=== PATIENT | male | born 1980 | race Caucasian/White ===

== ENCOUNTER 2016-12-16 19:54 | Emergency (ER) | payer OTHER ==
--- NOTE | 2016-12-16 21:41 | ED CLINICAL REPORT ---
Clinical Report - Physicians/Mid Levels [facility] [address] [place] [address] 12/16/2016 19:56 Patient: JERMAN HUSAIN Time Seen: 20:59. Arrived- By private vehicle. Historian- patient. CPT: ER phys charges level 3 plus (#870222). 7.6-12.5 simple-scalp, neck, ax (#[id number]). HISTORY OF PRESENT ILLNESS Chief Complaint: Injury to the right hand. The injury happened just prior to arrival. Occurred at home. The patient sustained a laceration from a sharp edge. Patient is experiencing mild pain. No other injury. REVIEW OF SYSTEMS The patient sustained a laceration. No swelling, tingling, numbness, weakness or foreign body. All systems otherwise negative, except as recorded above. PAST HISTORY See nurses notes. The patient's dominant hand is the right. Tetanus immunization status is up-to-date. Problems: no known problems. Medications: None. Allergies: Penicillin. Sulfa Antibiotics. SOCIAL HISTORY Heavy tobacco smoker (cigarette)- less than 1 pack per day. Occasional alcohol use. No drug use. ADDITIONAL NOTES The nursing notes have been reviewed. PHYSICAL EXAM Vital Signs: 12/16/2016 20:10 BP: 157/104. HR: 114. RR: 14. O2 saturation: 95%. Temp: 98.8 F. Pain level now: 0/10. Appearance: Alert. Patient in mild distress. Skin: Skin warm and dry. Extremities: Hypothenar eminence, right hand: mild tenderness and subcutaneous laceration. SEE LACERATION PROCEDURE NOTE. Neurovascular intact distally. No swelling or deformity. No limited movement of the little finger. No wrist injury. Extremities otherwise negative. Neuro, Vascular and Tendons: Vascular status intact. Sensation intact. Motor intact. Neuro: Oriented X 3. No motor deficit. No sensory deficit. PROGRESS AND PROCEDURES Laceration Repair: Location: right hand. Length: 8 cm. Complexity: simple (local anesthesia used and sutured). Wound depth/shape- subcutaneous and linear. Wound is clean. Distal neuro/vascular/tendon status normal. Tendon examined. No tendon deficit or laceration. Local anesthesia provided using 2% lidocaine with bicarb. Prepped with Hibiclens. Wound cleansed and irrigated extensively with normal saline. Closure of skin: interrupted 4-0 (11 sutures). Post-procedure: he is stable and there are no complications. Bleeding is controlled and neuro-vascular status is intact distal to the wound. Dressing applied. Tetanus immunization given. Estimated blood loss: 2 mL. Course of Care: Tdap. Patient/family counseled. Disposition: Discharged. Condition: stable and improved. CLINICAL IMPRESSION Single deep laceration to the right hand.No foreign body present. Uncontrolled essential hypertension. INSTRUCTIONS Protect wound and keep wound area clean. Change dressing twice daily. Keep wounds dry. You may wash wounds briefly, then dry. Apply neosporin twice daily. Sutures should be removed in seven days. Limit use of your right hand until better. Warnings: TETANUS: You were given a tetanus shot during your visit. Make a note for future reference. GENERAL WARNINGS: Return or contact your physician immediately if your condition worsens or changes unexpectedly, if not improving as expected, or if other problems arise. OTC Medications: Acetaminophen (available over the counter): take according to label instructions. Follow-up: Follow up with your doctor in one week. Call for an appointment. Reason for referral: for suture removal as needed. Understanding of the discharge instructions verbalized by patient. (Electronically signed by Brice Eaton MD 12/19/2016 23:12)
--- NOTE | 2016-12-16 21:41 | ED ORDER SUMMARY ---
..... Patient: JERMAN HUSAIN OrderSheet [facility] VisitID: [id number] [address] [place] [address] 36y, M Registration Date/Time: 12/16/2016 ORDER SHEET Weight: 77.1 kg (stated) Allergies: Sulfa Antibiotics, Penicillin GENERAL ORDERS: MEDICATION ORDERS: Aekfmkp-Mcbvht-Wgmko Pertussis IM 0.5 mL (NOW, per protocol) (20:21 12/16/2016 RMarsden R.N. per protocol) (Ack 20:22 RMarsden R.N.) (Cancelled: Other20:23 RMarsden R.N.) Tdap IM 0.5 mL (NOW, per protocol) (20:23 12/16/2016 RMarsden R.N. per protocol) (Ack 20:24 RMarsden R.N.) (20:30 RMarsden R.N.) IV FLUIDS: ORDER SHEET NOTES: [Electronically signed by Mauri Looney R.N. (23:11 12/16/2016)] [Electronically signed by Brice Eaton MD (23:12 12/19/2016)] [Electronically locked/signed by Mauri Looney R.N. (23:11 12/16/2016)]
--- NOTE | 2016-12-16 21:41 | ED NURSING NOTES ---
Clinical Report - Nurses [facility] [place] [address] 12/16/2016 19:56 Patient: JERMAN HUSAIN TRIAGE Triage time 20:08. Acuity: LEVEL 4. Chief Complaint: INJURY TO RIGHT HAND. 20:16 12/16/16. Alert. No acute distress. SYED COMA SCORE: Syed Coma Scale: 15- eyes open spontaneously (4); best verbal response- oriented x 4 (5); best motor response- obeys commands (6). --20:16 Chacha Fernandez R.N. 20:10 12/16/16. BP: 157/104 (regular adult cuff) taken on the left arm, while sitting. HR: 114. RR: 14. O2 saturation: 95%. Temp: 98.8 F. Pain level now: 0/10. --20:16 Chacha Fernandez R.N. Weight: 77.1 kg stated. Height/Length: 71 inches Per Patient. BMI: 23.7. --20:12 Chacha Fernandez R.N. Medications None. --20:12 Chacha Fernandez R.N. Allergies Sulfa Antibiotics. --20:12 Chacha Fernandez R.N. Penicillin. --20:12 Chacha Fernandez R.N. History Arrived by private vehicle. Historian: patient. Primary physician (Dr Boswell). This occurred just prior to arrival. He sustained a laceration from a sharp edge (can of chicken soup). ( Patient states he was putting a gallon of milk in the garbage can and sliced his hand on the can of chicken soup.). Treatment NURSE OUTREACH CASE MANAGER: None. PAST MEDICAL HX: Tetanus status: unknown. Immunizations: up-to-date. SOCIAL HX: Light tobacco smoker. Occasional alcohol use. No drug use. FALL RISK ASSESSMENT: Fall risk assessment completed. No fall risk identified. NUTRITIONAL RISK ASSESSMENT: The nutritional risk assessment revealed no deficiencies. FUNCTIONAL ASSESSMENT: Functional assessment: no impairments noted. LEARNING NEEDS ASSESSMENT: The learning needs assessment revealed no barriers. SKIN INTEGRITY ASSESSMENT: Skin integrity risk assessment completed. No skin integrity risk identified. --20:16 Chacha Fernandez R.N. PROBLEMS: no known problems. ADDITIONAL SURGERIES: Skin grafting. --20:12 Chacha Fernandez R.N. Interventions ID band on patient. To treatment room. --20:16 Chacha Fernandez R.N. PHYSICAL ASSESSMENT 20:18 12/16/16. Ambulatory to room. GENERAL / NEURO / PSYCH: Oriented X 4. Alert. Appears in no acute distress. EXTREMITIES: Capillary refill is less than 2 seconds in the extremities. Extremity pulses are within normal limits. Extremities exhibit normal ROM. Dorsal right hand: subcutaneous 5.0 cm laceration with controlled bleeding. SKIN: Skin intact. Skin is warm and dry. --20:19 Chacha Fernandez R.N. NURSING PROGRESS NOTES 20:19 12/16/16. Call light placed in reach. Side rails up. Bed placed in lowest position. Brakes of bed on. Patient ready for evaluation- chart flagged and notification provided. --20:19 Chacha Fernandez R.N. 20:30 12/16/2016 TDAP IM 0.5 mL given. (Lot#: [id number], expiration date: 05/05/2018, [place]: sanofi pasteur). Given in the right deltoid. Allergies verified and confirmed 5 rights. Vaccine information statement provided to the patient. --20:30 Chacha Fernandez R.N. 21:37 12/16/2016 TDAP IM Response: no adverse reaction. --21:37 Mauri Looney R.N. 21:45. Applied clean dressing consisting of 4x4 gauze, following the application of antibiotic ointment (bacitracin). Secured with tube gauze. --23:10 Mauri Looney R.N. DISPOSITION / DISCHARGE Departure time: 21:52. --21:52 Mauri Looney R.N. 21:52. Condition at departure: stable. The goals identified in the patient's plan of care were met. ( Dr. Eaton aware of pt d/c BP. Gave him instructions for BP management and emphasized need to f/u with PCP regarding BP. Pt verbalizes importance of this f/u.). No learning barriers present. Discharge instructions provided and reviewed with the patient. Patient verbalized understanding. Written instructions provided in Amharic. ( Jerman verbalizes understanding of all d/c instructions including wound care and need to f/u with PCP for wound recheck. He has no questions and voices no concerns at this time.). The patient was discharged by the physician. He was discharged home and accompanied by hide and skin colerer. He left the Emergency Department ambulatory and via private vehicle. Qual Field Manager driving. SYED COMA SCORE: [place] Coma Scale: 15- eyes open spontaneously (4); best verbal response- oriented x 4 (5); best motor response- obeys commands (6). --23:10 Mauri Looney R.N. 23:08 12/16/16. BP: 156/102 (regular adult cuff) taken on the right arm, via an automated monitor, while sitting. HR: 99 (normal rate). RR: 16 (regular, unlabored and normal). O2 saturation: 97% on room air. Temp: 98.5 F (oral). Pain level now: 0/10. --23:10 Mauri Looney R.N. Locked/Released at 12/16/2016 23:11 by Mauri Looney R.N.
--- NOTE | 2016-12-16 21:41 | ED ORDER SUMMARY ---
..... Patient: JERMAN HUSAIN OrderSheet [facility] VisitID: [id number] [address] [place] [address] 36y, M Registration Date/Time: 12/16/2016 ORDER SHEET Weight: 77.1 kg (stated) Allergies: Sulfa Antibiotics, Penicillin GENERAL ORDERS: MEDICATION ORDERS: Eliqpvk-Flcauq-Lbsnj Pertussis IM 0.5 mL (NOW, per protocol) (20:21 12/16/2016 RMarsden R.N. per protocol) (Ack 20:22 RMarsden R.N.) (Cancelled: Other20:23 RMarsden R.N.) Tdap IM 0.5 mL (NOW, per protocol) (20:23 12/16/2016 RMarsden R.N. per protocol) (Ack 20:24 RMarsden R.N.) (20:30 RMarsden R.N.) IV FLUIDS: ORDER SHEET NOTES: [Electronically signed by Mauri Looney R.N. (23:11 12/16/2016)] [Electronically signed by Brice Eaton MD (23:12 12/19/2016)] [Electronically locked/signed by Mauri Looney R.N. (23:11 12/16/2016)]
--- NOTE | 2016-12-16 21:41 | ED NURSING NOTES ---
Clinical Report - Nurses [facility] [place] [address] 12/16/2016 19:56 Patient: JERMAN HUSAIN TRIAGE Triage time 20:08. Acuity: LEVEL 4. Chief Complaint: INJURY TO RIGHT HAND. 20:16 12/16/16. Alert. No acute distress. SYED COMA SCORE: Syed Coma Scale: 15- eyes open spontaneously (4); best verbal response- oriented x 4 (5); best motor response- obeys commands (6). --20:16 Chacha Fernandez R.N. 20:10 12/16/16. BP: 157/104 (regular adult cuff) taken on the left arm, while sitting. HR: 114. RR: 14. O2 saturation: 95%. Temp: 98.8 F. Pain level now: 0/10. --20:16 Chacha Fernandez R.N. Weight: 77.1 kg stated. Height/Length: 71 inches Per Patient. BMI: 23.7. --20:12 Chacha Fernandez R.N. Medications None. --20:12 Chacha Fernandez R.N. Allergies Sulfa Antibiotics. --20:12 Chacha Fernandez R.N. Penicillin. --20:12 Chacha Fernandez R.N. History Arrived by private vehicle. Historian: patient. Primary physician (Dr Boswell). This occurred just prior to arrival. He sustained a laceration from a sharp edge (can of chicken soup). ( Patient states he was putting a gallon of milk in the garbage can and sliced his hand on the can of chicken soup.). Treatment DRY PAN CHARGER: None. PAST MEDICAL HX: Tetanus status: unknown. Immunizations: up-to-date. SOCIAL HX: Light tobacco smoker. Occasional alcohol use. No drug use. FALL RISK ASSESSMENT: Fall risk assessment completed. No fall risk identified. NUTRITIONAL RISK ASSESSMENT: The nutritional risk assessment revealed no deficiencies. FUNCTIONAL ASSESSMENT: Functional assessment: no impairments noted. LEARNING NEEDS ASSESSMENT: The learning needs assessment revealed no barriers. SKIN INTEGRITY ASSESSMENT: Skin integrity risk assessment completed. No skin integrity risk identified. --20:16 Chacha Fernandez R.N. PROBLEMS: no known problems. ADDITIONAL SURGERIES: Skin grafting. --20:12 Chacha Fernandez R.N. Interventions ID band on patient. To treatment room. --20:16 Chacha Fernandez R.N. PHYSICAL ASSESSMENT 20:18 12/16/16. Ambulatory to room. GENERAL / NEURO / PSYCH: Oriented X 4. Alert. Appears in no acute distress. EXTREMITIES: Capillary refill is less than 2 seconds in the extremities. Extremity pulses are within normal limits. Extremities exhibit normal ROM. Dorsal right hand: subcutaneous 5.0 cm laceration with controlled bleeding. SKIN: Skin intact. Skin is warm and dry. --20:19 Chacha Fernandez R.N. NURSING PROGRESS NOTES 20:19 12/16/16. Call light placed in reach. Side rails up. Bed placed in lowest position. Brakes of bed on. Patient ready for evaluation- chart flagged and notification provided. --20:19 Chacha Fernandez R.N. 20:30 12/16/2016 TDAP IM 0.5 mL given. (Lot#: [id number], expiration date: 05/05/2018, Concentrator Operator: sanofi pasteur). Given in the right deltoid. Allergies verified and confirmed 5 rights. Vaccine information statement provided to the patient. --20:30 Chacha Fernandez R.N. 21:37 12/16/2016 TDAP IM Response: no adverse reaction. --21:37 Mauri Looney R.N. 21:45. Applied clean dressing consisting of 4x4 gauze, following the application of antibiotic ointment (bacitracin). Secured with tube gauze. --23:10 Mauri Looney R.N. DISPOSITION / DISCHARGE Departure time: 21:52. --21:52 Mauri Looney R.N. 21:52. Condition at departure: stable. The goals identified in the patient's plan of care were met. ( Dr. Eaton aware of pt d/c BP. Gave him instructions for BP management and emphasized need to f/u with PCP regarding BP. Pt verbalizes importance of this f/u.). No learning barriers present. Discharge instructions provided and reviewed with the patient. Patient verbalized understanding. Written instructions provided in Slovak. ( Jerman verbalizes understanding of all d/c instructions including wound care and need to f/u with PCP for wound recheck. He has no questions and voices no concerns at this time.). The patient was discharged by the physician. He was discharged home and accompanied by drug worker. He left the Emergency Department ambulatory and via private vehicle. Secondary Market Manager driving. SYED COMA SCORE: [place] Coma Scale: 15- eyes open spontaneously (4); best verbal response- oriented x 4 (5); best motor response- obeys commands (6). --23:10 Mauri Looney R.N. 23:08 12/16/16. BP: 156/102 (regular adult cuff) taken on the right arm, via an automated monitor, while sitting. HR: 99 (normal rate). RR: 16 (regular, unlabored and normal). O2 saturation: 97% on room air. Temp: 98.5 F (oral). Pain level now: 0/10. --23:10 Mauri Looney R.N. Locked/Released at 12/16/2016 23:11 by Mauri Looney R.N.
--- NOTE | 2016-12-16 21:41 | ED CLINICAL REPORT ---
Clinical Report - Physicians/Mid Levels [facility] [address] [place] [address] 12/16/2016 19:56 Patient: JERMAN HUSAIN Time Seen: 20:59. Arrived- By private vehicle. Historian- patient. CPT: ER phys charges level 3 plus (#[id number]). 7.6-12.5 simple-scalp, neck, ax (#[id number]). HISTORY OF PRESENT ILLNESS Chief Complaint: Injury to the right hand. The injury happened just prior to arrival. Occurred at home. The patient sustained a laceration from a sharp edge. Patient is experiencing mild pain. No other injury. REVIEW OF SYSTEMS The patient sustained a laceration. No swelling, tingling, numbness, weakness or foreign body. All systems otherwise negative, except as recorded above. PAST HISTORY See nurses notes. The patient's dominant hand is the right. Tetanus immunization status is up-to-date. Problems: no known problems. Medications: None. Allergies: Penicillin. Sulfa Antibiotics. SOCIAL HISTORY Heavy tobacco smoker (cigarette)- less than 1 pack per day. Occasional alcohol use. No drug use. ADDITIONAL NOTES The nursing notes have been reviewed. PHYSICAL EXAM Vital Signs: 12/16/2016 20:10 BP: 157/104. HR: 114. RR: 14. O2 saturation: 95%. Temp: 98.8 F. Pain level now: 0/10. Appearance: Alert. Patient in mild distress. Skin: Skin warm and dry. Extremities: Hypothenar eminence, right hand: mild tenderness and subcutaneous laceration. SEE LACERATION PROCEDURE NOTE. Neurovascular intact distally. No swelling or deformity. No limited movement of the little finger. No wrist injury. Extremities otherwise negative. Neuro, Vascular and Tendons: Vascular status intact. Sensation intact. Motor intact. Neuro: Oriented X 3. No motor deficit. No sensory deficit. PROGRESS AND PROCEDURES Laceration Repair: Location: right hand. Length: 8 cm. Complexity: simple (local anesthesia used and sutured). Wound depth/shape- subcutaneous and linear. Wound is clean. Distal neuro/vascular/tendon status normal. Tendon examined. No tendon deficit or laceration. Local anesthesia provided using 2% lidocaine with bicarb. Prepped with Hibiclens. Wound cleansed and irrigated extensively with normal saline. Closure of skin: interrupted 4-0 (11 sutures). Post-procedure: he is stable and there are no complications. Bleeding is controlled and neuro-vascular status is intact distal to the wound. Dressing applied. Tetanus immunization given. Estimated blood loss: 2 mL. Course of Care: Tdap. Patient/family counseled. Disposition: Discharged. Condition: stable and improved. CLINICAL IMPRESSION Single deep laceration to the right hand.No foreign body present. Uncontrolled essential hypertension. INSTRUCTIONS Protect wound and keep wound area clean. Change dressing twice daily. Keep wounds dry. You may wash wounds briefly, then dry. Apply neosporin twice daily. Sutures should be removed in seven days. Limit use of your right hand until better. Warnings: TETANUS: You were given a tetanus shot during your visit. Make a note for future reference. GENERAL WARNINGS: Return or contact your physician immediately if your condition worsens or changes unexpectedly, if not improving as expected, or if other problems arise. OTC Medications: Acetaminophen (available over the counter): take according to label instructions. Follow-up: Follow up with your doctor in one week. Call for an appointment. Reason for referral: for suture removal as needed. Understanding of the discharge instructions verbalized by patient. (Electronically signed by Brice Eaton MD 12/19/2016 23:12)
--- NOTE | 2016-12-19 23:13 | ED DISCHARGE INSTRUCTIONS ---
Patient: JERMAN HUSAIN General Instructions [facility] VisitID: [id number] [place] [address] 36y, M Registration Date/Time: 12/16/2016 Single deep laceration to the right hand.No foreign body present. Uncontrolled essential hypertension. INSTRUCTIONS Protect wound and keep wound area clean. Change dressing twice daily. Keep wounds dry. You may wash wounds briefly, then dry. Apply neosporin twice daily. Sutures should be removed in seven days. Limit use of your right hand until better. Warnings: TETANUS: You were given a tetanus shot during your visit. Make a note for future reference. GENERAL WARNINGS: Return or contact your physician immediately if your condition worsens or changes unexpectedly, if not improving as expected, or if other problems arise. OTC Medications: Acetaminophen (available over the counter): take according to label instructions. Follow-up: Follow up with your doctor in one week. Call for an appointment. Reason for referral: for suture removal as needed. Understanding of the discharge instructions verbalized by patient. ADDITIONAL INFORMATION Laceration (All Closures) Alaceration is a cut through the skin. This will usually require stitches (sutures) or luis alfredo if it is deep. Minor cuts may be treated with a surgical tape closure orskin glue. Home care The following guidelines will help you care for your laceration at home: Extremity, face, or trunk wounds Keep the wound clean and dry. If a bandage was applied and it becomes wet or dirty, replace it. Otherwise, leave it in place for the first 24 hours. If stitches or luis alfredo were used, clean the wound daily. After removing the bandage, wash the area with soap and water. Use a wet cotton swab to loosen and remove any blood or crust that forms. The doctor may prescribe an antibiotic cream or ointment to prevent infection. Do not stop taking this medication until you have finished the prescribed course or the doctor tells you to stop. The doctor may also prescribe medications for pain. Follow the doctors instructions for taking these medications. You may remove the bandage to shower as usual after the first 24 hours, but do not soak the area in water (no swimming) until the stitches or luis alfredo are removed. If surgical tape was used, keep the area clean and dry. If it becomes wet, blot it dry with a towel. If skin glue was used, do not scratch, rub, or pick at the adhesive film. Do not place tape directly over the film. Do not apply liquid, ointment, or creams to the wound while the film is in place. Do not clean the wound with peroxide and do not apply ointments. Avoid activities that cause heavy sweating until the film has fallen off. Protect the wound from prolonged exposure to sunlight or tanning lamps. You may shower as usual but do not soak the wound in water (no baths or swimming). The film will fall off by itself in 510 days. Scalp wounds During the first two days, you may carefully rinse your hair in the shower to remove blood, glass or dirt particles. After two days, you may shower and shampoo your hair normally. Do not soak your scalp in the tub or go swimming until the stitches or luis alfredo have been removed. Talk with your doctor before applying any antibiotic ointment to the wound. Mouth wounds Eat soft foods to reduce pain. If the cut is inside of your mouth, clean by rinsing after each meal and at bedtime with a mixture of equal parts water and hydrogen peroxide (do not swallow!). Or, you can use a cotton swab to directly apply hydrogen peroxide onto the cut. Mouth wounds can be painful when eating. You may use an [id number] local numbing solution for pain relief. If this is not available, you may use any numbing solution for teething babies. You may apply this directly to the sores with a cotton-tip swab or with your finger. Follow-up care Follow up with your health care provider. Most skin wounds heal within ten days. Mouth and facial wounds heal within five days. However, even with proper treatment, a wound infection may sometimes occur. Therefore, you should check the wound daily for signs of infection listed below. Stitches should be removed from the face within five days; stitches and luis alfredo should be removed from other parts of the body within 714 days. If dissolving stitches were used in the mouth, these will fall out or dissolve without the need for removal. If tape closures were used, remove them yourself if they have not fallen off after 7 days. Ifskin glue was used, the film will fall off by itself in 510 days. When to seek medical care Get prompt medical attention if any of these occur: Bleeding not controlled by direct pressure Signs of infection, including increasing pain in the wound, increasing wound redness or swelling, or pus coming from the wound Fever of 100.4F (38C) or higher, or as directed by your health care provider Stitches or luis alfredo come apart or fall out or surgical tape falls off before 7 days Wound edges re-open Laceration, Extremity (Sutures, Pollock, Or Tape) A laceration is a cut through the skin. This will usually require stitches (sutures) or luis alfredo if it is deep. Minor cuts may be treated with surgical tape closures. Home care The following guidelines will help you care for your laceration at home: Keep the wound clean and dry. If a bandage was applied and it becomes wet or dirty, replace it. Otherwise, leave it in place for the first 24 hours, then change it once a day or as directed. If stitches or luis alfredo were used, clean the wound daily: After removing the bandage, wash the area with soap and water. Use a wet cotton swab to loosen and remove any blood or crust that forms. After cleaning, keep the wound clean and dry. Talk with your doctor before applying any antibiotic ointment to the wound. Reapply the bandage. You may remove the bandage to shower as usual after the first 24 hours, but do not soak the area in water (no swimming) until the stitches or luis alfredo are removed. If surgical tape closures were used, keep the area clean and dry. If it becomes wet, blot it dry with a towel. The doctor may prescribe an antibiotic cream or ointment to prevent infection. Do not stop taking this medication until you have finished the prescribed course or the doctor tells you to stop. The doctor may also prescribe medications for pain. Follow the doctors instructions for taking these medications. If you have chronic liver or kidney disease or ever had a stomach ulcer or GI bleeding, talk with your doctor before using these medicines. Follow-up care Follow up with your health care provider. Most skin wounds heal within ten days. However, an infection may sometimes occur despite proper treatment. Therefore, check the wound daily for the signs of infection listed below. Stitches and luis alfredo should be removed within 714 days. If surgical tape closures were used, you may remove them after 10 days, if they have not fallen off by then. Notify your doctor if you notice persistent numbness or weakness in the injured extremity. (Note:A radiologist will review any X-rays that were taken. We will notify you of any new findings that may affect your care.) When to seek medical care Get prompt medical attention if any of these occur: Increasing pain in the wound Redness, swelling, or pus coming from the wound Fever of 100.4F (38C) or higher, or as directed by your health care provider If stitches or luis alfredo come apart or fall out before your next appointment If the surgical tape closures fall off within seven days, or the wound edges re-open Bleeding not controlled by direct pressure High Blood Pressure -- To Be Confirmed [No Tx] Your blood pressure was higher today than normal. Sometimes anxiety or pain can cause a temporary rise in blood pressure that later returns to normal. If your blood pressure is high on one measurement, this does not mean that you have hypertension (a chronic illness). However, you must have your blood pressure measured again within the next few days to find out if its still high. A normal blood pressure is 120/80 or less. The first (top) number is the "systolic" pressure. The second (bottom) number is the "diastolic" pressure. Hypertension exists when either the top number is 140 or higher, OR the bottom number is 90 or higher on repeated measurements. Blood pressure in the range of 120-140 (systolic) or 80-89 (diastolic) is considered "pre-hypertension". This means your are at risk for getting hypertension. You should have regular blood pressure checks to be sure your blood pressure is not rising. Home Care: Measure your blood pressure on 3 different days and write down the results. This can be done at your doctor's office or this facility. Some pharmacies and grocery stores offer automated blood pressure machines for your use. Follow Up: If your blood pressure is "high" (over 120/80) on 2 out of 3 days, you will need to follow up with your doctor for further evaluation and treatment. DO NOT PUT THIS OFF! Untreated high blood pressure increases the risk for heart attack, also known as acute myocardial infarction, or AMI, and stroke. It is a treatable condition. Get Prompt Medical Attention if any of the following occur: Chest pain or shortness of breath Severe headache Throbbing or rushing sound in the ears Nosebleed Sudden severe abdominal pain Extreme drowsiness, confusion or fainting Dizziness or vertigo (dizziness with spinning sensation) Weakness of an arm or leg or one side of the face Difficulty with speech or vision Laceration, Extremity (Sutures, Luis Alfredo, Or Tape) A laceration is a cut through the skin. This will usually require stitches (sutures) or luis alfredo if it is deep. Minor cuts may be treated with surgical tape closures. Home care The following guidelines will help you care for your laceration at home: Keep the wound clean and dry. If a bandage was applied and it becomes wet or dirty, replace it. Otherwise, leave it in place for the first 24 hours, then change it once a day or as directed. If stitches or luis alfredo were used, clean the wound daily: After removing the bandage, wash the area with soap and water. Use a wet cotton swab to loosen and remove any blood or crust that forms. After cleaning, keep the wound clean and dry. Talk with your doctor before applying any antibiotic ointment to the wound. Reapply the bandage. You may remove the bandage to shower as usual after the first 24 hours, but do not soak the area in water (no swimming) until the stitches or luis alfredo are removed. If surgical tape closures were used, keep the area clean and dry. If it becomes wet, blot it dry with a towel. The doctor may prescribe an antibiotic cream or ointment to prevent infection. Do not stop taking this medication until you have finished the prescribed course or the doctor tells you to stop. The doctor may also prescribe medications for pain. Follow the doctors instructions for taking these medications. If you have chronic liver or kidney disease or ever had a stomach ulcer or GI bleeding, talk with your doctor before using these medicines. Follow-up care Follow up with your health care provider. Most skin wounds heal within ten days. However, an infection may sometimes occur despite proper treatment. Therefore, check the wound daily for the signs of infection listed below. Stitches and luis alfredo should be removed within 714 days. If surgical tape closures were used, you may remove them after 10 days, if they have not fallen off by then. Notify your doctor if you notice persistent numbness or weakness in the injured extremity. (Note:A radiologist will review any X-rays that were taken. We will notify you of any new findings that may affect your care.) When to seek medical care Get prompt medical attention if any of these occur: Increasing pain in the wound Redness, swelling, or pus coming from the wound Fever of 100.4F (38C) or higher, or as directed by your health care provider If stitches or luis alfredo come apart or fall out before your next appointment If the surgical tape closures fall off within seven days, or the wound edges re-open Bleeding not controlled by direct pressure You have been given the following additional information: Laceration, All Laceration, Extrem (Suture, Staple, Or Tape) Hypertension, To Be Confirmed Laceration, Extrem (Suture, Staple, Or Tape) Limit use of your right hand until better. (Electronically signed by Brice Eaton MD 12/19/2016 23:12)
--- NOTE | 2016-12-19 23:13 | ED MAR SUMMARY ---
..... Medication Administration Record [facility] [address] [place] [address] Patient: JERMAN HUSAIN Visit ID: [id number] 36y, M Weight: 77.1 kg Height/Length: 71 in BMI: 23.7 ALLERGIES: Penicillin, Sulfa Antibiotics Given 20:30 12/16/2016 Chacha Fernandez R.N. Medication Administered: TDAP [IM], Dose: 0.5 mL IM. Medication Ordered: Tdap IM 0.5 mL (NOW, per protocol).
--- NOTE | 2016-12-19 23:13 | ED MAR SUMMARY ---
..... Medication Administration Record [facility] [address] [place] [address] Patient: JERMAN HUSAIN Visit ID: [id number] 36y, M Weight: 77.1 kg Height/Length: 71 in BMI: 23.7 ALLERGIES: Penicillin, Sulfa Antibiotics Given 20:30 12/16/2016 Chacha Fernandez R.N. Medication Administered: TDAP [IM], Dose: 0.5 mL IM. Medication Ordered: Tdap IM 0.5 mL (NOW, per protocol).
--- NOTE | 2016-12-19 23:13 | ED MED RECONCILIATION SUMMARY ---
Patient: JERMAN HUSAIN Medication Reconciliation Report [facility] VisitID: [id number] [address] [place] [address] 36y, M Registration Date/Time: 12/16/2016 Weight: 77.1 kg Height/Length: 71 in. BMI: 23.7 ALLERGIES: Penicillin, Sulfa Antibiotics The patient's Home Medications are listed below: NONE. The source(s) of the original Home Medication information: Not obtained. The following Medications were given to the patient in the Emergency Department: TDAP [IM] IM 0.5 mL, administered: 12/16/2016 8:30:00 PM The following Medications were prescribed to the patient: Acetaminophen (available over the counter): take according to label instructions. -- Brice Eaton MD
--- NOTE | 2016-12-19 23:13 | ED MED RECONCILIATION SUMMARY ---
Patient: JERMAN HUSAIN Medication Reconciliation Report VisitID: [id number] [address] [place] [address] 36y, M Registration Date/Time: 12/16/2016 Weight: 77.1 kg Height/Length: 71 in. BMI: 23.7 ALLERGIES: Penicillin, Sulfa Antibiotics The patient's Home Medications are listed below: NONE. The source(s) of the original Home Medication information: Not obtained. The following Medications were given to the patient in the Emergency Department: TDAP [IM] IM 0.5 mL, administered: 12/16/2016 8:30:00 PM The following Medications were prescribed to the patient: Acetaminophen (available over the counter): take according to label instructions. -- Brice Eaton MD
== END 2016-12-16 21:52 | disposition home or self-care (01) ==
LOC: ED SRH 19:54
DX: S61.411A Laceration without foreign body of right hand, initial encounter (principal); W26.8XXA Contact with other sharp object(s), not elsewhere classified, initial encounter; Y93.89 Activity, other specified; Y92.019 Unspecified place in single-family (private) house as the place of occurrence of the external cause; Y99.9 Unspecified external cause status; I10 Essential (primary) hypertension; F17.210 Nicotine dependence, cigarettes, uncomplicated; Z88.0 Allergy status to penicillin; Z88.1 Allergy status to other antibiotic agents; Z23 Encounter for immunization